=== PATIENT | female | born 1945 | race Caucasian/White ===

== ENCOUNTER 2023-07-16 07:54 | Outpatient (OUT) | payer MEDICARE, SELFPAY ==
[2023-07-16 08:42] LABS: Basophils Absolute Auto 0.1 10^3/uL (0.0-0.1); Basophils Percent Auto 0.6 % (0.2-2.0); Eosinophils Absolute Auto 0.3 10^3/uL (0.0-0.7); Eosinophils Percent Auto 2.9 % (0.9-7.0); Hematocrit 38.4 % (36.0-48.0); Hemoglobin 12.6 g/dL (12.0-16.0); Immature Granulocytes Abs Auto 0.02 10^3/uL (0.00-0.03); Immature Granulocytes Pct Auto 0.2 % (0.0-0.5); Lymphocytes Absolute Auto 4.1 10^3/uL (1.2-3.8); Lymphocytes Percent Auto 45.1 % (20.5-60.0); Mean Corpuscular HGB Conc 32.8 g/dL (29.9-35.2); Mean Corpuscular Hemoglobin 31.9 pg (26.7-34.0); Mean Corpuscular Volume 97.2 fL (81.0-99.0); Mean Platelet Volume 9.1 fL (9.5-13.5); Monocytes Absolute Auto 0.6 10^3/uL (0.3-0.8); Monocytes Percent Auto 6.9 % (1.7-12.0); Neutrophils Percent Auto 44.3 % (43.0-75.0); Platelet Count 300 10^3/uL (150-450); Red Blood Count 3.95 10^6/uL (4.20-5.40); Red Cell Distribution Width 13.2 % (11.0-15.0)
[2023-07-16 08:57] LABS: Estimated Average Glucose 105 mg/dL; Glycohemoglobin A1C 5.3 % (4.5-6.2)
[2023-07-16 13:43] LABS: Alanine Aminotransferase 17 U/L (14-59); Albumin Globulin Ratio 0.8; Albumin Level 3.4 g/dL (3.4-5.0); Alkaline Phosphatase 60 U/L (46-116); Anion Gap 10.1; Aspartate Amino Transferase 9 U/L (15-37); Bilirubin Total 0.3 mg/dL (0.2-1.0); Calcium 8.6 mg/dL (8.5-10.1); Chloride 103 mmol/L (98-107); Chol HDL Ratio 4.3; Cholesterol 212 mg/dL (<=200); Estimated GFR (African America >60 (>=60); Estimated GFR (Non-African Ame >60 (>=60); Free T3 2.51 pg/mL (2.18-3.98); Globulin 4.3 g/dL; Glucose 103 mg/dL (74-106); HDL Cholesterol 49 mg/dL (40-60); Potassium 4.1 mmol/L (3.5-5.1); Sodium 137 mmol/L (136-145); Thyroid Stimulating Hormone 7.103 uIU/mL (0.358-3.740); Total Protein 7.7 g/dL (6.4-8.2); Triglycerides 126 mg/dL (<=150); VLDL CHOLESTEROL 25.2 mg/dL
== END 2023-07-16 07:55 | disposition home or self-care (01) ==
LOC: LAB 07:55
PROVIDERS: PCP Family Medicine; Visit Provider Family Medicine
DX: I10 Essential (primary) hypertension (principal); E03.9 Hypothyroidism, unspecified; E55.9 Vitamin D deficiency, unspecified; E78.5 Hyperlipidemia, unspecified; R73.09 Other abnormal glucose; D64.9 Anemia, unspecified
CPT/HCPCS: 36415; 80053; 80061; 82306; 83036; 83540; 84436; 84443; 84481; 85025

== ENCOUNTER 2023-08-13 12:40 | Outpatient (OUT) | payer MEDICARE, SELFPAY ==
[2023-08-13 13:25] LABS: Thyroid Stimulating Hormone 4.357 uIU/mL (0.358-3.740)
[2023-08-13 14:25] LABS: Free T4 1.17 ng/dL (0.76-1.46)
== END 2023-08-13 12:41 | disposition home or self-care (01) ==
LOC: LAB 12:41
PROVIDERS: PCP Family Medicine; Visit Provider Family Medicine
DX: E03.9 Hypothyroidism, unspecified (principal)
CPT/HCPCS: 36415; 84439; 84443

== ENCOUNTER 2023-09-19 10:32 | Outpatient (OUT) | payer MEDICARE, SELFPAY ==
[2023-09-19 12:20] LABS: Free T3 2.23 pg/mL (2.18-3.98); Thyroid Stimulating Hormone 3.327 uIU/mL (0.358-3.740)
== END 2023-09-19 10:33 | disposition home or self-care (01) ==
LOC: LAB 10:32
PROVIDERS: PCP Family Medicine; Visit Provider Family Medicine
DX: E03.9 Hypothyroidism, unspecified (principal)
CPT/HCPCS: 36415; 84436; 84443; 84481

== ENCOUNTER 2023-11-22 12:37 | Outpatient (OUT) | payer MEDICARE, SELFPAY ==
--- NOTE | 2023-11-22 12:40 | MM_ITS ---
Patient Name: DAMASO CHILDERS MR#: [id number] : 1945 Exam Date: 11/22/2023 Ordering Doctor: DR Anjum Bajwa . RADIOLOGY REPORT PROCEDURE: MM TOMOSYNTHESIS SCREENING BI COMPARISON: MG MAMM SCREEN 3D PRAVIN CAD, 10/30/2022. MG MAMM SCREEN 3D PRAVIN CAD, 10/25/2021. MG MAMM SCREEN PRAVIN W CAD, 10/04/2020. MG MAMM PRAVIN SCRN W CAD DIG, 08/17/2014. INDICATIONS: screening Calculator Name NCI Breast Cancer Risk Assessment Tool 5 Year Breast Cancer Risk 1.40% Lifetime Breast Cancer Risk 2.20% Personal Breast Cancer No Personal Ovarian Cancer No Treatments None Family Cancers None LOCATION: [facility] BREAST COMPOSITION: Scattered areas fibroglandular density. FINDINGS: DIAGNOSTIC CATEGORY 1--NEGATIVE. RIGHT BREAST: No significant suspicious finding. No significant change has occurred. LEFT BREAST: No significant suspicious finding. No significant change has occurred. RECOMMENDATIONS: ROUTINE MAMMOGRAM AND CLINICAL EVALUATION IN 12 MONTHS. PLEASE NOTE: A NORMAL MAMMOGRAM DOES NOT EXCLUDE THE POSSIBILITY OF BREAST CANCER. A CLINICALLY SUSPICIOUS PALPABLE LUMP SHOULD BE BIOPSIED. Dictated by: Rohan Lamar M.D. on 11/22/2023 at 16:03 Approved by: Rohan Lamar M.D. on 11/22/2023 at 16:05
--- OUTSIDE RECORDS SUMMARY | 2023-11-22 12:44 | XMS_ITS | CCD ---
Author Name Unknown Address [address] [place] [address] Organization [facility] Care Team Providers Care Retail Maintenance Technician Name Role Phone MIROSLAVA, DR SHORT Attending Unavailable HOY, DR SHORT Consulting Unavailable HOY, DR SHORT Primary Care Unavailable HOY, DR SHORT Admitting Unavailable WEST, DR ROBINSON [place] Consulting Unavailable HOY, DR SHORT Consulting Unavailable ASAY, DR SHORT Primary Care Unavailable HOY, DR SHORT Admitting Unavailable HOY, DR SHORT Attending Unavailable HOY, DR SHORT Consulting Unavailable ASAY, DR SHORT Primary Care Unavailable HOY, DR SHORT Admitting Unavailable HOY, DR SHORT Attending Unavailable HOY, DR SHORT Consulting Unavailable HOY, DR SHORT Primary Care Unavailable HOY, DR SHORT Admitting Unavailable ASAY, DR SHORT Attending Unavailable Allergies Allergy Classification Reported Allergen(s) Allergy Type Date of Onset Reaction(s) Facility (1 source) Ciprofloxacin Drug Allergy [facility] Repository Problems Active Problems Problem Classification Problem Date Documented Da te Episodic/Chronic Disorders of lipid metabolism (4 sources) Hyperlipidemia, unspecified; Translations: [HYPERLIPIDEMIA UNSPECIFIED] Onset: 07-03-2022 Chronic Nutritional deficiencies (1 source) Vitamin D deficiency, unspecified; Translations: [VITAMIN D DEFICIENCY UNSPECIFIED] Onset: 07-08-2022 Chronic Other screening for suspected conditions (not mental disorders or infectious disease) (5 sources) Encounter for screening mammogram for malignant neoplasm of breast; Translations: [Encounter for screening for malignant neoplasm of colon] Onset: 07-08-2022 Episodic Unclassified (3 sources) CONTACT W/AND (SUSP) EXPOS COVID-19; Translations: [CONTACT W/AND (SUSP) EXPOS COVID-19] Onset: 05-09-2022 Past or Other Problems Problem Classification Problem Date Documented Da te Episodic/Chronic Diabetes mellitus without complication (1 source) Other abnormal glucose; Translations: [OTHER ABNORMAL GLUCOSE] Onset: 07-08-2022 Episodic Malaise and fatigue (1 source) Other fatigue; Translations: [OTHER FATIGUE] Onset: 07-08-2022 Episodic Other upper respiratory infections (1 source) Acute sinusitis, unspecified; Translations: [ACUTE SINUSITIS UNSPECIFIED] Onset: 05-09-2022 Episodic Unclassified (1 source) CONTACT W/AND (SUSP) EXPOS COVID-19; Translations: [CONTACT W/AND (SUSP) EXPOS COVID-19] Onset: 05-08-2022 Results Test Name Value Interpretation Reference Range Facil ity MG MAMM SCREEN 3D PRAVIN CADon 10-30-2022 MG MAMM SCREEN 3D PRAVIN CAD Patient: DAMASO CHILDERS Exam Date: 10/30/2022 : 1945 Gender:F Ordering : DR HAN COLORADO . Admission #: [id number] Family : Order #: [id number] CLICK HERE TO VIEW EXAM RADIOLOGY REPORT PROCEDURE: MAMMOGRAM SCREENING 3D BILATERAL CAD COMPARISON: MG MAMM SCREEN 3D PRAVIN CAD, 10/25/2021. INDICATIONS: Screening mammography Calculator Name NCI Breast Cancer Risk Assessment Tool 5 Year Breast Cancer Risk 1.40% Lifetime Breast Cancer Risk 2.40% Personal Breast Cancer No Personal Ovarian Cancer No Treatments None Family Cancers None LOCATION: [facility] BREAST COMPOSITION: Scattered areas fibroglandular density. FINDINGS: DIAGNOSTIC CATEGORY 1--NEGATIVE. NO CHANGE FROM COMPARISON ASSESSMENT. Scattered benign-appearing calcifications are present. Scattered benign-appearing lymph nodes are present. RIGHT BREAST: No significant suspicious finding. LEFT BREAST: No significant suspicious finding. RECOMMENDATIONS: ROUTINE MAMMOGRAM AND CLINICAL EVALUATION IN 12 MONTHS. PLEASE NOTE: A NORMAL MAMMOGRAM DOES NOT EXCLUDE THE POSSIBILITY OF BREAST CANCER. A CLINICALLY SUSPICIOUS PALPABLE LUMP SHOULD BE BIOPSIED. Dictated by: Robinson Chamberlain MD on 10/30/2022 at 12:18 Approved by: Robinson Chamberlain MD on 10/30/2022 at 12:20 Normal [facility] T4 LABCORPon 07-05-2022 T4 [Mass/Vol] 7.2 ug/dL Normal 4.5-12.0 [facility] Comment on above: Performed By: #### T 4LC #### [facility] [address] [place] [address] Dr. Lyudmila PERAZA D 25-OH LABCORPon 2021 Vitamin D, 25-Hydroxy 24.8 ng/mL Critically low 30.0-100.0 [facility] Comment on above: Result Comment: Isabel min D deficiency has been defined by the [place] of [employer] and an Endocrine Society practice guideline as a level of serum 25-OH vitamin D less than 20 ng/mL (1,2). The Endocrine Society went on to further define vitamin D insufficiency as a level between 21 and 29 ng/mL (2). 1. IOM ([place] [employer]). 2010. Dietary reference intakes for calcium and D. [place]: The National Academies Press. 2. Shon MF, Antonia NC, Yonis ROSSI, et al. Evaluation, treatment, and prevention of vitamin D deficiency: an Endocrine Society clinical practice guideline. JCEM. 2010; 96(7):1911-30. Performed By: #### V ITADLC #### [facility] [address] [place] [address] Dr. Lyudmila Pope FREE T3on 07-03-2022 FREE T3 2.64 pg/mlL Normal 2.18-3.98 [facility] Comment on above: Performed By: #### T SH, FT3 #### [facility] [address] [address] [address] Lyudmila Pope OCC BLD IMMUNO SCREENon 06-21 OCCULT BLOOD Negative Normal NEGATIVE [facility] Comment on above: Performed By: #### O BSCRN #### [facility] [address] [address] [address] Lyudmila Pope TSHon 07-03-2022 TSH 3.588 uIU/mL Normal 0.358-3.740 [facility] Comment on above: Performed By: #### T SH, FT3 #### [facility] [address] [place] [address] Dr. Lyudmila Pope VIT D 25-OH [facility] 2021 Vitamin D, 25-Hydroxy 19.5 ng/mL Critically low 30.0-100.0 [facility] Comment on above: Result Comment: Isabel min D deficiency has been defined by the [place] [employer] and an Endocrine Society practice guideline as a level of serum 25-OH vitamin D less than 20 ng/mL (1,2). The Endocrine Society went on to further define vitamin D insufficiency as a level between 21 and 29 ng/mL (2). 1. IOM ([place] [employer]). 2010. Dietary reference intakes for calcium and D. [place]: The National Academies Press. 2. Shon MF, Antonia NC, Yonis ROSSI, et al. Evaluation, treatment, and prevention of vitamin D deficiency: an Endocrine Society clinical practice guideline. JCEM. 2010; 96(7):1911-30. Performed By: #### A 1C #### [facility] [address] [place] [address] Dr. Lyudmila Pope CBC AUTO DIFFon 05-29-2022 BASO # 0.1 103/ul Normal 0.0-0.1 [facility] Comment on above: Performed By: #### C BC #### [facility] [address] [place] [address] Dr. Lyudmila Poep Basophils/100 WBC (Bld) 0.5 % Normal 0.2-2.0 [facility] Comment on above: Performed By: #### C BC #### [facility] [address] [place] [address] Dr. Lyudmila Pope EO # 0.3 103/ul Normal 0.0-0.7 [facility] Comment on above: Performed By: #### C BC #### [facility] [address] [place] [address] Dr. Lyudmila Pope Eosinophils/100 WBC (Bld) 3.2 % Normal 0.9-7.0 [facility] Comment on above: Performed By: #### C BC #### [facility] [address] [place] [address] Dr. Lyudmila Pope Erythrocyte distribution width (RBC) [Ratio] 13.0 % Normal 11.0-15.0 [facility] Comment on above: Performed By: #### C BC #### [facility] [address] [place] [address] Dr. Lyudmila Pope Hematocrit (Bld) [Volume fraction] 38.3 % Normal 36.0-48.0 [facility] Comment on above: Performed By: #### C BC #### [facility] [address] [place] [address] Dr. Lyudmila Pope Hemoglobin (Bld) [Mass/Vol] 12.5 g/dL Normal 12.0-16.0 [facility] Comment on above: Performed By: #### C BC #### [facility] [address] [place] [address] Dr. Lyudmila Pope IG # 0.02 10e3/ul Normal 0.00-0.03 [facility] Comment on above: Performed By: #### C BC #### [facility] [address] [place] [address] Dr. Lyudmila Pope IG % 0.2 % Normal 0.0-0.5 [facility] Comment on above: Performed By: #### C BC #### [facility] [address] [place] [address] Dr. Lyudmila Pope LYMPH # 3.8 103/ul Normal 1.2-3.8 [facility] Comment on above: Performed By: #### C BC #### [facility] [address] [place] [address] Dr. Lyudmila Pope Lymphocytes/100 WBC (Bld) 40.3 % Normal 20.5-60.0 [facility] Comment on above: Performed By: #### C BC #### [facility] [address] [place] [address] Dr. Lyudmila Pope MANUAL DIFF REQ NO Normal [facility] Comment on above: Performed By: #### C BC #### [facility] [address] [place] [address] Dr. Lyudmila Pope MCH (RBC) [Entitic mass] 32.2 pg Normal 26.7-34.0 [facility] Comment on above: Performed By: #### C BC #### [facility] [address] [place] [address] Dr. Lyudmila Pope MCHC (RBC) [Mass/Vol] 32.6 g/dL Normal 29.9-35.2 [facility] Comment on above: Performed By: #### C BC #### [facility] [address] [address] [address] Lyudmila Pope MCV (RBC) [Entitic vol] 98.7 fL Normal 81.0-99.0 [facility] Comment on above: Performed By: #### C BC #### [facility] [address] [address] [address] Lyudmila Pope MONO # 0.6 103/ul Normal 0.3-0.8 [facility] Comment on above: Performed By: #### C BC #### [facility] [address] [address] [address] Lyudmila Pope Monocytes/100 WBC (Bld) 6.6 % Normal 1.7-12.0 [facility] Comment on above: Performed By: #### C BC #### [facility] [address] [address] [address] Lyudmila Pope NEUT # 4.6 103/ul Normal 1.4-6.5 [facility] Comment on above: Performed By: #### C BC #### [facility] [address] [address] [address] Lyudmila Pope Neutrophils/100 WBC (Bld) 49.2 % Normal 43.0-75.0 [facility] Comment on above: Performed By: #### C BC #### [facility] [address] [address] [address] Lyudmila Pope Platelet mean volume (Bld) [Entitic vol] 9.6 fL Normal 9.5-13.5 [facility] Comment on above: Performed By: #### C BC #### [facility] [address] [address] [address] Lyudmila Pope PLT 298 103/ul Normal 150-450 [facility] Comment on above: Performed By: #### C BC #### [facility] [address] [address] [address] Lyudmila Pope RBC 3.88 106/ul Critically low 4.20-5.[address] [facility] Comment on above: Performed By: #### C BC #### [facility] [address] [address] [address] Lyudmila Pope WBC 9.4 103/ul Normal 4.0-11.0 [facility] Comment on above: Performed By: #### C BC #### [facility] [address] [address] [address] Lyudmila Pope FREE T3on 05-29-2022 FREE T3 2.44 pg/mlL Normal 2.18-3.98 [facility] Comment on above: Performed By: #### A 1C #### [facility] [address] [address] [address] Lyudmila Pope GLYCOHEMOGLOBIN A1Con 2021 ADA RECOMMENDATION SEE BELOW Normal [facility] Comment on above: Result Comment: ADA RECOMMENDED LIMIT 4.0 - 6.0 ADA THERAPEUTIC TARGET < 7.0 ACTION SUGGESTED > 7.0 Performed By: #### A 1C #### [facility] [address] [place] [address] Dr. Lyudmila Pope Glucose [Mass/Vol] 117 mg/dL Normal [facility] Comment on above: Performed By: #### A 1C #### [facility] [address] [address] [address] Lyudmila Pope HbA1c (Bld) [Mass fraction] 5.7 % Normal 4.5-6.2 [facility] Comment on above: Performed By: #### A 1C #### [facility] [address] [place] [address] Dr. Lyudmila Pope LIPID PROFILEon 05-29-2022 CHOL-HDL RATIO NORM SEE BELOW Normal [facility] Comment on above: Result Comment: 3.3 - 4.4 LOW RISK 4.4 - 7.1 AVERAGE RISK 7.1 - 11.0 MODERATE RISK >11.0 HIGH RISK Performed By: #### C MP, TSH, LIPID, T4, FT3 #### [facility] [address] [place] [address] Dr. Lyudmila Pope Cholesterol [Mass/Vol] 203 mg/dL Critically high <=200 [facility] Comment on above: Performed By: #### C MP, TSH, LIPID, T4, FT3 #### [facility] [address] [address] [address] Lyudmila Pope Cholesterol in HDL [Mass/Vol] 40 mg/dL Normal 40-60 [facility] Comment on above: Performed By: #### C MP, TSH, LIPID, T4, FT3 #### [facility] [address] [address] [address] Lyudmila Pope Cholesterol in LDL [Mass/Vol] 132.2 mg/dL Normal [facility] Comment on above: Performed By: #### C MP, TSH, LIPID, T4, FT3 #### [facility] [address] [address] [address] Lyudmila Pope Cholesterol.total/Cho lesterol in HDL [Mass ratio] 5.1 {ratio} Normal [facility] Comment on above: Performed By: #### C MP, TSH, LIPID, T4, FT3 #### [facility] [address] [place] [address] Dr. Lyudmila Pope HDL NORMAL > or = 60 mg/dl - LOW CARDIOVASCULAR RISK <40 mg/dl - HIGH CARDIOVASCULAR RISK Normal [facility] Comment on above: Performed By: #### C MP, TSH, LIPID, T4, FT3 #### [facility] [address] [address] [address] Lyudmila Pope LDL CALC NORMAL SEE BELOW Normal [facility] Comment on above: Result Comment: <100 mg/dl OPTIMAL 100 - 129 mg/dl NEAR OR ABOVE OPTIMAL 130 - 159 mg/dl BORDERLINE HIGH 160 - 189 mg/dl HIGH >190 mg/dl VERY HIGH Performed By: #### C MP, TSH, LIPID, T4, FT3 #### [facility] [address] [address] [address] Lyudmila Pope Triglyceride [Mass/Vol] 154 mg/dL Critically high <=150 [facility] Comment on above: Performed By: #### C MP, TSH, LIPID, T4, FT3 #### [facility] [address] [address] [address] Lyudmila Pope VLDL CALC 30.8 mg/dL Normal [facility] Comment on above: Performed By: #### C MP, TSH, LIPID, T4, FT3 #### [facility] [address] [address] [address] Lyudmila Pope PROF 14(COMP METB)on 022 Albumin [Mass/Vol] 3.4 g/dL Normal 3.4-5.0 [facility] Comment on above: Performed By: #### A 1C #### [facility] [address] [place] [address] Dr. Lyudmila Pope Albumin/Globulin [Mass ratio] 0.8 {ratio} Normal [facility] Comment on above: Performed By: #### A 1C #### [facility] [address] [place] [address] Dr. Lyudmila Pope ALP [Catalytic activity/Vol] 66 U/L Normal 46-116 [facility] Comment on above: Performed By: #### A 1C #### [facility] [address] [place] [address] Dr. Lyudmila Pope ALT [Catalytic activity/Vol] 11 U/L Critically low 14-59 [facility] Comment on above: Performed By: #### A 1C #### [facility] [address] [place] [address] Dr. Lyudmila Pope Anion gap [Moles/Vol] 9.3 mmol/L Normal [facility] Comment on above: Performed By: #### A 1C #### [facility] [address] [place] [address] Dr. Lyudmila Pope AST [Catalytic activity/Vol] 6 U/L Critically low 15-37 [facility] Comment on above: Performed By: #### A 1C #### [facility] [address] [place] [address] Dr. Lyudmila Pope Bilirubin [Mass/Vol] 0.4 mg/dL Normal 0.2-1.0 [facility] Comment on above: Performed By: #### A 1C #### [facility] [address] [place] [address] Dr. Lyudmila Pope Calcium [Mass/Vol] 8.7 mg/dL Normal 8.5-10.1 [facility] Comment on above: Performed By: #### A 1C #### [facility] [address] [address] [address] Lyudmila Pope Chloride [Moles/Vol] 101 mmol/L Normal 98-107 [facility] Comment on above: Performed By: #### A 1C #### [facility] [address] [address] [address] Lyudmila Pope CO2 [Moles/Vol] 29.9 mmol/L Normal 21.0-32.0 [facility] Comment on above: Performed By: #### A 1C #### [facility] [address] [address] [address] Lyudmila Pope Creatinine [Mass/Vol] 0.73 mg/dL Normal 0.55-1.02 [facility] Comment on above: Performed By: #### A 1C #### [facility] [address] [place] [address] Dr. Lyudmila Pope EGFR-AF GABONESE >60 Normal >=60 [facility] Comment on above: Performed By: #### A 1C #### [facility] [address] [address] [address] Lyudmila Pope EGFR-NON AF GABONESE >60 Normal >=60 [facility] Comment on above: Performed By: #### A 1C #### [facility] [address] [address] [address] Lyudmila Pope Globulin (S) [Mass/Vol] 4.1 g/dL Normal [facility] Comment on above: Performed By: #### A 1C #### [facility] [address] [place] [address] Dr. Lyudmila Pope Glucose [Mass/Vol] 96 mg/dL Normal 74-106 [facility] Comment on above: Performed By: #### A 1C #### [facility] [address] [address] [address] Lyudmila Pope Potassium [Moles/Vol] 4.2 mmol/L Normal 3.5-5.1 [facility] Comment on above: Performed By: #### A 1C #### [facility] [address] [address] [address] Lyudmila Pope Protein [Mass/Vol] 7.5 g/dL Normal 6.4-8.2 [facility] Comment on above: Performed By: #### A 1C #### [facility] [address] [place] [address] Dr. Lyudmila Pope Sodium [Moles/Vol] 136 mmol/L Normal 136-145 [facility] Comment on above: Performed By: #### A 1C #### [facility] [address] [address] [address] Lyudmila Pope Urea nitrogen [Mass/Vol] 10.0 mg/dL Normal 7.0-18.0 [facility] Comment on above: Performed By: #### A 1C #### [facility] [address] [place] [address] Dr. Lyudmila Pope Urea nitrogen/Creatinine [Mass ratio] 13.7 mg/mg Normal [facility] Comment on above: Performed By: #### A 1C #### [facility] [address] [place] [address] Dr. Lyudmila Pope T4on 05-29-2022 T4 [Mass/Vol] 5.70 ug/dL Normal 4.80-13.90 [facility] Comment on above: Performed By: #### A 1C #### [facility] [address] [place] [address] Dr. Lyudmila Pope TSHon 05-29-2022 TSH 5.878 uIU/mL Critically high 0.358-3.740 [facility] Comment on above: Performed By: #### A 1C #### [facility] [address] [place] [address] Dr. Lyudmila Pope Covid-19 PCR (CVDTB)on 04-20 SARS-CoV-2 (COVID-19) RNA INDIGO+probe Ql (Unsp spec) Not detected Normal NOT DETECTED [facility] Comment on above: Result Comment: This test is not yet approved or cleared by the [place] FDA. When there are no FDA-approved or cleared tests available, and other criteria are met, FDA can make tests available under an emergency access mechanism called an Emergency Use Authorization (EUA). The EUA for this test is supported by the Housing Specialist of Health and Human Service's (HHS's) declaration that circumstances exist to justify the emergency use of in vitro diagnostics for the detection and/or diagnosis of the virus that causes COVID-19. This EUA will remain in effect (meaning this test can be used) for the duration of the COVID-19 declaration justifying emergency of IVDs, unless it is terminated or revoked by FDA (after which the test may no longer be used). When diagnostic testing is negative, the possibility of a false negative should be considered in the context of a patient's recent exposures and the presence of clinical signs and symptoms consistent with SARS-CoV-2. Performed By: #### [facility] #### [facility] [address] [place] [address] Dr. Lyudmila Pope Encounters Encounter Date Encounter Type Care Provider Facility Start: 10-30-2022 End: 10-31-[address] HAN COLORADO Facility:[facility] Start: 07-03-2022 End: 07-04-[address] HAN [place]ADO Facility:[facility] Start: 05-29-2022 End: 05-30-[address] HAN [place]ORADO Facility:[facility] Start: 05-08-2022 End: 05-08-[address] HAN [place]ADO Facility:[facility] Payers Date Payer Category Payer Medicare [id number] 1945 Unknown [id number] 1945 Unknown [id number] 1945 Unknown [id number] 1945 Unknown [id number] Summary Purpose Family History No Family History Records Found Advance Directives No Advanced Directives Records Found Additional Source Comments INFORMATION SOURCE (unrecogn ized section and content) DATE CREATED AUTHOR 11/01/2022 [facility] FOR RECORDS PERTAINING TO PATIENTS WHO ARE OR HAVE BEEN ENROLLED IN A CHEMICAL DEPENDENCY/SUBSTANCEABUSE PROGRAM, SOME INFORMATION MAY BE OMITTED. This clinical summary was aggregated from multiple sources. Caution should be exercised in using it in the provision of clinical care. This summary normalizes information from multiple sources, and as a consequence, information in this document may materially change the coding, format and clinical context of patient data. In addition, data may be omitted in some cases. CLINICAL DECISIONS SHOULD BE BASED ON THE PRIMARY CLINICAL RECORDS. [facility] [employer] [facility]. provides no warranty or guarantee of the accuracy or completeness of information in this document.
== END 2023-11-22 12:38 | disposition home or self-care (01) ==
LOC: MAMMO 12:37
PROVIDERS: PCP Family Medicine; Visit Provider Family Medicine
DX: Z12.31 Encounter for screening mammogram for malignant neoplasm of breast (principal)
CPT/HCPCS: 77063; 77067

== ENCOUNTER 2025-07-13 10:00 | Outpatient (OUT) | payer MEDICARE, SELFPAY ==
--- NOTE | 2025-07-13 10:02 | MM_ITS ---
Patient Name: DAMASO CHILDERS MR#: [id number] : 1945 Exam Date: 07/13/2025 Ordering Doctor: DR HAN COLORADO . RADIOLOGY REPORT PROCEDURE: MM TOMOSYNTHESIS SCREENING BI COMPARISON: MM TOMOSYNTHESIS SCREENING BI, 11/22/2023. MG MAMM SCREEN 3D PRAVIN CAD, 10/30/2022. MG MAMM SCREEN 3D PRAVIN CAD, 10/25/2021. MG MAMM PRAVIN SCRN W CAD DIG, 08/17/2014. INDICATIONS: Screening Calculator Name NCI Breast Cancer Risk Assessment Tool 5 Year Breast Cancer Risk 1.40% Lifetime Breast Cancer Risk 2.00% Personal Breast Cancer No Personal Ovarian Cancer No Treatments None Family Cancers None LOCATION: [facility] BREAST COMPOSITION: There are scattered areas of fibroglandular density. FINDINGS: DIAGNOSTIC CATEGORY 1--NEGATIVE. RIGHT BREAST: No significant suspicious finding. LEFT BREAST: No significant suspicious finding. RECOMMENDATIONS: ROUTINE MAMMOGRAM AND CLINICAL EVALUATION IN 12 MONTHS. Dictated by: Mk Hernandez DO on 07/13/2025 at 15:31 Approved by: Mk Hernandez DO on 07/13/2025 at 15:32
--- OUTSIDE RECORDS SUMMARY | 2025-07-13 10:03 | XMS_ITS | CCD ---
Author Organization [facility] Care Team Providers Care Chief Engineer Name Role Phone MIROSLAVA, DR SHORT Attending Unavailable ASAY, DR SHORT Consulting Unavailable ASAY, DR SHORT Primary Care Unavailable ASAY, DR SHORT Admitting Unavailable WEST, DR ROBINSON [place] Consulting Unavailable ASAY, DR SHORT Consulting Unavailable MIROSLAVA, DR SHORT Primary Care Unavailable ASAY, DR SHORT Admitting Unavailable HOY, DR SHORT Attending Unavailable HOY, DR SHORT Consulting Unavailable ASAY, DR SHORT Primary Care Unavailable HOY, DR SHORT Admitting Unavailable HOY, DR SHORT Attending Unavailable HOY, DR SHORT Consulting Unavailable ASAY, DR SHORT Primary Care Unavailable HOY, DR SHORT Admitting Unavailable HOY, DR SHORT Attending Unavailable Allergies Allergy Classification Reported Allergen(s) Allergy Type Date of Onset Reaction(s) Facility (1 source) Ciprofloxacin Drug Allergy [facility] Repository Problems Active Problems Problem Classification Problem [...] : DR HAN [place] . Admission #: [id number] Family : Order #: [id number] CLICK HERE TO VIEW EXAM RADIOLOGY REPORT PROCEDURE: MAMMOGRAM SCREENING 3D BILATERAL CAD COMPARISON: MG MAMM SCREEN 3D PRAVIN CAD, 10/25/2021. INDICATIONS: Screening mammography Calculator Name NCI Breast Cancer Risk Assessment Tool 5 Year Breast Cancer Risk 1.40% Lifetime Breast Cancer Risk 2.40% Personal Breast Cancer No Personal Ovarian Cancer No Treatments None Family Cancers None LOCATION: [facility] BREAST COMPOSITION: Scattered areas fibroglandular density. FINDINGS: [...] MD on 10/30/2022 at 12:20 Normal [facility] T4 [facility]on 07-05-2022 T4 [Mass/Vol] 7.2 ug/dL Normal 4.5-12.0 [facility] Comment on above: Performed By: #### T 4LC #### [facility] [address] [place] [address] Dr. Lyudmila Pope VIT D 25-OH LABC[facility]Pon 2021 Vitamin D, 25-Hydroxy 24.8 ng/mL Critically low 30.0-100.0 [facility] Comment on above: Result Comment: Isabel min D deficiency has been defined by the Severance of Medicine and an Endocrine Society practice guideline as a level of serum 25-OH vitamin D less than 20 ng/mL (1,2). The Endocrine Society went on to further define vitamin D insufficiency as a level between 21 and 29 ng/mL (2). 1. IOM (Severance of Medicine). 2010. Dietary reference intakes for calcium and D. [place]: The National Academies Press. 2. Shon MF, Antonia BURLESON, Yonis ROSSI, et al. Evaluation, treatment, and prevention of vitamin D deficiency: an Endocrine Society clinical practice guideline. JCEM. 2010; 96(7):1911-30. Performed By: #### V ITADLC #### [facility] [address] [place] [address] Dr. Lyudmila Pope FREE T3on 07-03-2022 FREE T3 2.64 pg/mlL Normal 2.18-3.98 [facility] Comment on above: Performed By: #### T SH, FT3 #### [facility] [address] [address] [address] Lyudmila Pope OCC BLD IMMUNO SCREENon 06-21 OCCULT BLOOD Negative Normal NEGATIVE [facility] Comment on above: Performed By: #### O BSCRN #### [facility] [address] [address] [address] Lyudmila Pope TSHon 07-03-2022 TSH 3.588 uIU/mL Normal 0.358-3.[address] [facility] Comment on above: Performed By: #### T SH, FT3 #### [facility] [address] [address] [address] Lyudmila Pope VIT D 25-OH [facility] 2021 Vitamin D, 25-Hydroxy 19.5 ng/mL Critically low 30.0-100.0 [facility] Comment on above: Result Comment: Isabel min D deficiency has been defined by the Sever[employer] of Medicine and an Endocrine Society practice guideline as a level of serum 25-OH vitamin D less than 20 ng/mL (1,2). The Endocrine Society went on to further define vitamin D insufficiency as a level between 21 and 29 ng/mL (2). 1. IOM (Severance of Medicine). 2010. Dietary reference intakes for calcium and D. [place]: The National Academies Press. 2. Shon MF, Antonia BURLESON, Yonis ROSSI, et al. Evaluation, treatment, and prevention of vitamin D deficiency: an Endocrine Society clinical practice guideline. JCEM. 2010; 96(7):1911-30. Performed By: #### A 1C #### [facility] [address] [place] [address] Dr. Lyudmila Pope CBC AUTO DIFFon 05-29-2022 BASO # 0.1 103/ul Normal 0.0-0.1 [facility] Comment on above: Performed By: #### C BC #### [facility] [address] [place] [address] Dr. Lyudmila Pope Basophils/100 WBC (Bld) 0.5 % Normal 0.2-2.0 [facility] Comment on above: Performed By: #### C BC #### [facility] [address] [place] [address] Dr. Lyudmila Pope EO # 0.3 103/ul Normal 0.0-0.7 [facility] Comment on above: Performed By: #### C BC #### [facility] [address] [place] [address] Dr. Lyudmila Pope Eosinophils/100 WBC (Bld) 3.2 % Normal 0.9-7.0 [facility] Comment on above: Performed By: #### C BC #### [facility] [address] [place] [address] Dr. Lyudmila Pope Erythrocyte distribution width (RBC) [Ratio] 13.0 % Normal 11.0-15.0 [facility] Comment on above: Performed By: #### C BC #### [facility] [address] [place] [address] Dr. Lyudmila Pope Hematocrit (Bld) [Volume fraction] 38.3 % Normal 36.0-48.0 [facility] Comment on above: Performed By: #### C BC #### [facility] [address] [place] [address] Dr. Lyudmila Pope Hemoglobin (Bld) [Mass/Vol] 12.5 g/dL Normal 12.0-16.0 [facility] Comment on above: Performed By: #### C BC #### [facility] [address] [place] [address] Dr. Lyudmila Pope IG # 0.02 10e3/ul Normal 0.00-0.03 [facility] Comment on above: Performed By: #### C BC #### [facility] [address] [place] [address] Dr. Lyudmila Pope IG % 0.2 % Normal 0.0-0.5 [facility] Comment on above: Performed By: #### C BC #### [facility] [address] [place] [address] Dr. Lyudmila Pope LYMPH # 3.8 103/ul Normal 1.2-3.8 [facility] Comment on above: Performed By: #### C BC #### [facility] [address] [place] [address] Dr. Lyudmila Pope Lymphocytes/100 WBC (Bld) 40.3 % Normal 20.5-60.0 [facility] Comment on above: Performed By: #### C BC #### [facility] [address] [place] [address] Dr. Lyudmila Pope MANUAL DIFF REQ NO Normal [facility] Comment on above: Performed By: #### C BC #### [facility] [address] [place] [address] Dr. Lyudmila Pope MCH (RBC) [Entitic mass] 32.2 pg Normal 26.7-34.0 [facility] Comment on above: Performed By: #### C BC #### [facility] [address] [place] [address] Dr. Lyudmila Pope MCHC (RBC) [Mass/Vol] 32.6 g/dL Normal 29.9-35.2 [facility] Comment on above: Performed By: #### C BC #### [facility] [id number] Lyudmila Pope MCV (RBC) [Entitic vol] 98.7 fL Normal 81.0-99.0 [facility] Comment on above: Performed By: #### C BC #### [facility] [address] [address] [address] Lyudmila Pope MONO # 0.6 103/ul Normal 0.3-0.8 [facility] Comment on above: Performed By: #### C BC #### [facility] [address] [address] [address] Lyudmila Pope Monocytes/100 WBC (Bld) 6.6 % Normal 1.7-12.0 [facility] Comment on above: Performed By: #### C BC #### [facility] [address] [place] [address] Dr. Lyudmila Pope NEUT # 4.6 103/ul Normal 1.4-6.5 [facility] Comment on above: Performed By: #### C BC #### [facility] [address] [place] [address] Dr. Lyudmila Pope Neutrophils/100 WBC (Bld) 49.2 % Normal 43.0-75.0 [facility] Comment on above: Performed By: #### C BC #### [facility] [address] [place] [address] Dr. Lyudmila Pope Platelet mean volume (Bld) [Entitic vol] 9.6 fL Normal 9.5-13.5 [facility] Comment on above: Performed By: #### C BC #### [facility] [address] [place] [address] Dr. Lyudmila Pope PLT 298 103/ul Normal 150-450 [facility] Comment on above: Performed By: #### C BC #### [facility] [id number] Lyudmila Pope RBC 3.88 106/ul Critically low 4.20-5.40 [facility] Comment on above: Performed By: #### C BC #### [facility] [address] [place] [address] Dr. Lyudmila Pope WBC 9.4 103/ul Normal 4.0-11.0 [facility] Comment on above: Performed By: #### C BC #### [facility] [address] [address] [address] Lyudmila Pope FREE T3on 05-29-2022 FREE T3 2.44 pg/mlL Normal 2.18-3.98 [facility] Comment on above: Performed By: #### A 1C #### [facility] [address] [address] [address] Lyudmila Pope GLYCOHEMOGLOBIN A1Con 2021 ADA RECOMMENDATION SEE BELOW Normal [facility] Comment on above: Result Comment: ADA RECOMMENDED LIMIT 4.0 - 6.0 ADA THERAPEUTIC TARGET < 7.0 ACTION SUGGESTED > 7.0 Performed By: #### A 1C #### [facility] [address] [place] [address] Dr. Lyudmila Pope Glucose [Mass/Vol] 117 mg/dL Normal [facility] Comment on above: Performed By: #### A 1C #### [facility] [address] [address] [address] Lyudmila Pope HbA1c (Bld) [Mass fraction] 5.7 % Normal 4.5-6.2 [facility] Comment on above: Performed By: #### A 1C #### [facility] [address] [place] [address] Dr. Lyudmila Pope LIPID PROFILEon 05-29-2022 CHOL-HDL RATIO NORM SEE BELOW Normal [facility] Comment on above: Result Comment: 3.3 - 4.4 LOW RISK 4.4 - 7.1 AVERAGE RISK 7.1 - 11.0 MODERATE RISK >11.0 HIGH RISK Performed By: #### C MP, TSH, LIPID, T4, FT3 #### [facility] [address] [address] [address] Lyudmila Pope Cholesterol [Mass/Vol] 203 mg/dL Critically high <=200 [facility] Comment on above: Performed By: #### C MP, TSH, LIPID, T4, FT3 #### [facility] [address] [address] [address] Lyudmila Pope Cholesterol in HDL [Mass/Vol] 40 mg/dL Normal 40-60 [facility] Comment on above: Performed By: #### C MP, TSH, LIPID, T4, FT3 #### [facility] [address] [address] [address] Lyudmila Pope Cholesterol in LDL [Mass/Vol] 132.2 mg/dL Normal [facility] Comment on above: Performed By: #### C MP, TSH, LIPID, T4, FT3 #### [facility] [address] [address] [address] Lyudmila Pope Cholesterol.total/Cho lesterol in HDL [Mass ratio] 5.1 {ratio} Normal [facility] Comment on above: Performed By: #### C MP, TSH, LIPID, T4, FT3 #### [facility] [address] [place] [address] Dr. Lyudmila Pope HDL NORMAL > or = 60 mg/dl - LOW CARDIOVASCULAR RISK <40 mg/dl - HIGH CARDIOVASCULAR RISK Normal [facility] Comment on above: Performed By: #### C MP, TSH, LIPID, T4, FT3 #### [facility] [address] [address] [address] Lyudmila Pope LDL CALC NORMAL SEE BELOW Normal [facility] Comment on above: Result Comment: <100 mg/dl OPTIMAL 100 - 129 mg/dl NEAR OR ABOVE OPTIMAL 130 - 159 mg/dl BORDERLINE HIGH 160 - 189 mg/dl HIGH >190 mg/dl VERY HIGH Performed By: #### C MP, TSH, LIPID, T4, FT3 #### [facility] [address] [place] [address] Dr. Lyudmila Pope Triglyceride [Mass/Vol] 154 mg/dL Critically high <=150 [facility] Comment on above: Performed By: #### C MP, TSH, LIPID, T4, FT3 #### [facility] [address] [place] [address] Dr. Lyudmila Pope VLDL CALC 30.8 mg/dL Normal [facility] Comment on above: Performed By: #### C MP, TSH, LIPID, T4, FT3 #### [facility] [address] [place] [address] Dr. Lyudmila Pope PROF 14(COMP METB)on 022 Albumin [Mass/Vol] 3.4 g/dL Normal 3.4-5.0 [facility] Comment on above: Performed By: #### A 1C #### [facility] [address] [place] [address] Dr. Lyudmila Pope Albumin/Globulin [Mass ratio] 0.8 {ratio} Normal [facility] Comment on above: Performed By: #### A 1C #### [facility] [address] [place] [address] Dr. Lyudmila Pope ALP [Catalytic activity/Vol] 66 U/L Normal 46-116 [facility] Comment on above: Performed By: #### A 1C #### [facility] [address] [place] [address] Dr. Lyudmila Pope ALT [Catalytic activity/Vol] 11 U/L Critically low 14-59 [facility] Comment on above: Performed By: #### A 1C #### [facility] [address] [place] [address] Dr. Lyudmila Pope Anion gap [Moles/Vol] 9.3 mmol/L Normal [facility] Comment on above: Performed By: #### A 1C #### [facility] [address] [place] [address] Dr. Lyudmila Pope AST [Catalytic activity/Vol] 6 U/L Critically low 15-37 [facility] Comment on above: Performed By: #### A 1C #### [facility] [address] [place] [address] Dr. Lyudmila Pope Bilirubin [Mass/Vol] 0.4 mg/dL Normal 0.2-1.0 [facility] Comment on above: Performed By: #### A 1C #### [facility] [address] [place] [address] Dr. Lyudmila Pope Calcium [Mass/Vol] 8.7 mg/dL Normal 8.5-10.1 [facility] Comment on above: Performed By: #### A 1C #### [facility] [address] [address] [address] Lyudmila Pope Chloride [Moles/Vol] 101 mmol/L Normal 98-107 [facility] Comment on above: Performed By: #### A 1C #### [facility] [address] [place] [address] Dr. Lyudmila Pope CO2 [Moles/Vol] 29.9 mmol/L Normal 21.0-32.0 [facility] Comment on above: Performed By: #### A 1C #### [facility] [address] [place] [address] Dr. Lyudmila Pope Creatinine [Mass/Vol] 0.73 mg/dL Normal 0.55-1.02 [facility] Comment on above: Performed By: #### A 1C #### [facility] [address] [place] [address] Dr. Lyudmila Pope EGFR-AF SRI LANKAN >60 Normal >=60 [facility] Comment on above: Performed By: #### A 1C #### [facility] [address] [place] [address] Dr. Lyudmila Pope EGFR-NON AF SRI LANKAN >60 Normal >=60 [facility] Comment on above: Performed By: #### A 1C #### [facility] [address] [address] [address] Lyudmila Pope Globulin (S) [Mass/Vol] 4.1 g/dL Normal [facility] Comment on above: Performed By: #### A 1C #### [facility] [address] [address] [address] Lyudmila Pope Glucose [Mass/Vol] 96 mg/dL Normal 74-106 [facility] Comment on above: Performed By: #### A 1C #### [facility] [address] [address] [address] Lyudmila Pope Potassium [Moles/Vol] 4.2 mmol/L Normal 3.5-5.1 [facility] Comment on above: Performed By: #### A 1C #### [facility] [address] [place] [address] Dr. Lyudmila Pope Protein [Mass/Vol] 7.5 g/dL Normal 6.4-8.2 [facility] Comment on above: Performed By: #### A 1C #### [facility] [address] [place] [address] Dr. Lyudmila Pope Sodium [Moles/Vol] 136 mmol/L Normal 136-145 [facility] Comment on above: Performed By: #### A 1C #### [facility] [address] [place] [address] Dr. Lyudmila Pope Urea nitrogen [Mass/Vol] 10.0 mg/dL Normal 7.0-18.0 [facility] Comment on above: Performed By: #### A 1C #### [facility] [address] [place] [address] Dr. Lyudmila Pope Urea nitrogen/Creatinine [Mass ratio] 13.7 mg/mg Normal [facility] Comment on above: Performed By: #### A 1C #### [facility] [address] [place] [address] Dr. Lyudmila Pope T4on 05-29-2022 T4 [Mass/Vol] 5.70 ug/dL Normal 4.80-13.90 [facility] Comment on above: Performed By: #### A 1C #### [facility] [address] [place] [address] Dr. Lyudmila Pope TSHon 05-29-2022 TSH 5.878 uIU/mL Critically high 0.358-3.740 [facility] Comment on above: Performed By: #### A 1C #### [facility] [address] [place] [address] Dr. Lyudmila Pope Covid-19 PCR (CVDTBH)on 04-20 SARS-CoV-2 (COVID-19) RNA INDIGO+probe Ql (Unsp spec) Not detected Normal NOT DETECTED [facility] Comment on above: Result Comment: This test is not yet approved or cleared by the [place] FDA. When there are no FDA-approved or cleared tests available, and other criteria are met, FDA can make tests available under an emergency access mechanism called an Emergency Use Authorization (EUA). The EUA for this test is supported by the [place] of Health and Human Service's (HHS's) declaration [...] consistent with SARS-CoV-2. Performed By: #### C [facility] #### [facility] [address] [place] [address] Dr. Lyudmila Pope Encounters Encounter Date Encounter Type Care Provider Facility Start: 10-30-2022 End: 10-31-[address] HAN [place] Facility:[facility] Start: 07-03-2022 End: 07-04-[address] HAN [place] Facility:[facility] Start: 05-29-2022 End: 05-30-[address] HAN [place] Facility:[facility] Start: 05-08-2022 End: 05-08-[address] HNA [place] Facility:[facility] Payers Date Payer Category Payer Medicare [id number] 1945 Unknown [id number] [id number] 1945 Unknown [id number] [id number] 1945 Unknown [id number] [id number] 1945 Unknown [id number] [id number] Summary Purpose Family History No Family History Records Found Advance Directives No Advanced Directives Records Found Additional Source Comments INFORMATION SOURCE (unrecogn ized section and content) DATE CREATED AUTHOR 11/01/2022 [facility] FOR RECORDS PERTAINING TO PATIENTS WHO [...] BE BASED ON THE PRIMARY CLINICAL RECORDS. [facility] [employer] [facility]. provides no warranty or guarantee of the accuracy or completeness of information in this document.
== END 2025-07-13 10:01 | disposition home or self-care (01) ==
LOC: MAMMO 10:00
PROVIDERS: PCP Family Medicine; Visit Provider Family Medicine
DX: Z12.31 Encounter for screening mammogram for malignant neoplasm of breast (principal)
CPT/HCPCS: 77063; 77067